=== PATIENT | male | born 1940 | race Caucasian/White ===

== ENCOUNTER → 2024-08-22 13:06 | Outpatient (REF) | payer MEDICARE, OTHER, SELFPAY | LOC: MRI 3T 13:06 | PROVIDERS: ATTENDING PHYSICIAN Neurological Surgery; FAMILY PHYSICIAN Internal Medicine | DX: S12.100A Unspecified displaced fracture of second cervical vertebra, initial encounter for closed fracture (principal) | CPT/HCPCS: 72040; 72141 ==

== ENCOUNTER → 2024-11-24 10:56 | Outpatient (REF) | payer MEDICARE, OTHER, SELFPAY | LOC: HWRAD 10:56 | PROVIDERS: ATTENDING PHYSICIAN Neurological Surgery | DX: S12.100A Unspecified displaced fracture of second cervical vertebra, initial encounter for closed fracture (principal) | CPT/HCPCS: 72052 ==